=== PATIENT | female | born 1980 | race Caucasian/White ===

== ENCOUNTER → 2017-04-05 | Outpatient (CLI) | payer OTHER ==
[~2017-04-05] MED LIST: NORE0.35 PO; PREN0.01 PO
== END ==
LOC: HPND 13:01
PROVIDERS: ATTEND Family Medicine
DX: O09.522 Supervision of elderly multigravida, second trimester (principal)
CPT/HCPCS: 76811

== ENCOUNTER 2018-01-09 17:34 | Emergency (ER) | payer MEDICAID, OTHER | END 2018-01-09 19:21 | disposition left against medical advice (07) | LOC: NED 17:34 | DX: Z53.21 Procedure and treatment not carried out due to patient leaving prior to being seen by health care provider (principal) | CPT/HCPCS: 99281 ==